=== PATIENT | female | born 2000 | race American Indian/Alaskan Native ===

== ENCOUNTER 2022-02-13 15:35 | Emergency (ER) | payer MEDICAID ==
[2022-02-13 17:47] LABS: Eosinophils # (Auto) 0.1 K/mm3 (0.0-0.4); Eosinophils % (Auto) 2.8 % (0.0-4.3); Hematocrit 39.9 % (30.3-42.9); Hemoglobin 13.4 gm/dl (10.1-14.3); Lymphocytes # (Auto) 1.6 K/mm3 (1.2-5.4); Lymphocytes % (Auto) 33.5 % (13.4-35.0); Mean Corpuscular HGB Conc 34 % (30-34); Mean Corpuscular Volume 88 fl (79-97); Monocytes # (Auto) 0.7 K/mm3 (0.0-0.8); Monocytes % (Auto) 15.1 % (0.0-7.3); Platelet Count 254 K/mm3 (140-440); Red Blood Count 4.53 M/mm3 (3.65-5.03); Red Cell Distribution Width 14.6 % (13.2-15.2)
[2022-02-13 17:53] LABS: Bilirubin,Urine NEG (Negative); Blood,Urine MOD (Negative); Color,Urine Straw (Yellow); Protein,Urine <15 mg/dL mg/dL (Negative); RBC,Urine < 1.0 /HPF (0.0-6.0); Urobilinogen,Urine < 2.0 mg/dL (<2.0)
[2022-02-13 17:55] LABS: WBC,Urine < 1.0 /HPF (0.0-6.0)
[2022-02-13] MEDS ORDERED: IBUPROFEN 600 MG TAB PO ONE (20:57)
[2022-02-13] MEDS ORDERED: ACETAMINOPHEN 500 MG TAB PO ONE (20:57)
[2022-02-13 22:41] LABS: Alanine Aminotransferase 10 units/L (7-56); Albumin 4.3 g/dL (3.9-5); BUN/Creatinine Ratio 11; Blood Urea Nitrogen 9 mg/dL (7-17); Calcium 9.4 mg/dL (8.4-10.2); Hemolysis Index 14
--- NOTE | 2022-02-13 23:34 | Cat Scan Report ---
CT ABDOMEN AND PELVIS WITH CONTRAST INDICATION: RLQ abdominal pain. TECHNIQUE: Axial CT images were obtained through the abdomen and pelvis after IV contrast. All CT scans at this location are performed using CT dose reduction for ALARA by means of automated exposure control. COMPARISON: None available. FINDINGS: LOWER CHEST: No significant abnormality. LIVER: No significant abnormality. GALLBLADDER: No significant abnormality. BILE DUCTS: No significant abnormality. PANCREAS: No significant abnormality. SPLEEN: No significant abnormality. ADRENALS: No significant abnormality. RIGHT KIDNEY and URETER: No significant abnormality. LEFT KIDNEY and URETER: No significant abnormality. STOMACH and SMALL BOWEL: No significant abnormality. COLON: No significant abnormality. APPENDIX: Normal. PERITONEUM: No free fluid. No free air. No fluid collection. LYMPH NODES: No significant adenopathy. AORTA and ARTERIES: No significant abnormality. IVC and VEINS: No significant abnormality. URINARY BLADDER: No significant abnormality. REPRODUCTIVE ORGANS: No significant abnormality. ADDITIONAL FINDINGS: None. SKELETAL SYSTEM: No significant abnormality. IMPRESSION: 1. No significant abnormality. Signer Name: Delvin Hill MD Signed: 02/13/2022 11:30 PM Workstation Name: [id number]
--- NOTE | 2022-02-13 23:40 | Ultrasound Report ---
ULTRASOUND PELVIS INDICATION: vaginal bleeding, pain. TECHNIQUE: Transabdominal. Duplex Color Doppler used: Yes. COMPARISON: None available FINDINGS: Uterus: Present. Size: 7.2 x 3.7 x 5.5 cm. Endometrial complex: Normal measuring 9 mm. Mass lesions: None. Additional findings: None. Right Ovary -- not visualized Left Ovary-- not visualized Urinary Bladder: Normal. Free Fluid: None. Additional Findings: None. IMPRESSION: 1. No acute sonographic abnormality of the pelvis. 2. Neither ovary visualized on this transabdominal ultrasound Signer Name: Delvin Hill MD Signed: 02/13/2022 11:36 PM Workstation Name: [id number]
--- NOTE | 2022-02-14 00:26 | Emergency Department Report ---
ED Female HPI - General Chief complaint: Vaginal Bleeding Stated complaint: POSSIBLE MISCARRIAGE/FEMALE HEALTH ISSUES Source: patient Mode of arrival: Ambulatory Limitations: No Limitations - History of Present Illness Initial comments: Patient is a A2 21-year-old -[place] female with no past medical history presents to the ED with complaint of acute onset persistent diffuse low abdominal pain with vaginal bleeding for the last 1 week, worse in the last 3 days. Patient states that her vaginal bleeding has been persistent for 1 month but the suprapubic and right lower quadrant pain started 3 days ago with increasing behavior vaginal bleeding. Patient states that she has never had irregular menstrual cycle and that her cycles are usually mild but these current symptoms have worsened. Patient denies dizziness, syncope, fever, chills, cough, sore throat, vaginal discharge, dysuria, urinary frequency and urgency, dyspareunia, low back pain, headache or lightheadedness and dizziness. MD Complaint: vaginal bleeding, pelvic pain -: Sudden, month(s) (1) Location: suprapubic Radiation: non-radiating Severity: severe Severity scale (0 -10): 7 Quality: cramping, sharp Consistency: constant Improves with: none Worsens with: menstrual period Are you Now?: No Associated Symptoms: denies other symptoms, vaginal bleeding, abdominal pain (SUPRAPOUBIC). denies: nausea/vomiting, fever/chills, headaches, dysuria, hematuria, rash, shortness of breath, weakness - Related Data Sexually active: Yes : 2 Para: 0 A: 2 Previous Rx's Medication Instructions Recorded Last Taken Type Ibuprofen [Motrin] 800 mg PO Q8HR PRN #30 tablet 02/14/22 Unknown Rx Ondansetron [Zofran Odt] 4 mg PO Q8HR PRN #15 tab.rapdis 02/14/22 Unknown Rx traMADoL [Ultram] 50 mg PO Q6HR PRN #10 tablet 02/14/22 Unknown Rx Allergies Allergy/AdvReac Type Severity Reaction Status Date / Time No Known Allergies Allergy Unverified 02/13/22 16:37 ED Review of Systems ROS: Stated complaint: POSSIBLE MISCARRIAGE/FEMALE HEALTH ISSUES Other details as noted in HPI Constitutional: denies: chills, fever Eyes: denies: eye pain, eye discharge, vision change ENT: denies: ear pain, throat pain Respiratory: denies: cough, shortness of breath, wheezing Cardiovascular: denies: chest pain, palpitations Endocrine: no symptoms reported Gastrointestinal: denies: abdominal pain, nausea, diarrhea Genitourinary: abnormal menses (Heavy vaginal bleeding), other (Pelvic pain). denies: urgency, dysuria, discharge Musculoskeletal: denies: back pain, joint swelling, arthralgia Skin: denies: rash, lesions Neurological: denies: headache, weakness, paresthesias Psychiatric: denies: anxiety, depression Hematological/Lymphatic: denies: easy bleeding, easy bruising ED Past Medical Hx - Past Medical History Previous Medical History?: No - Surgical History Past Surgical History?: Yes Additional Surgical History: tonsillectomy - Medications Home Medications: Home Medications Medication Instructions Recorded Confirmed Last Taken Type Ibuprofen [Motrin] 800 mg PO Q8HR PRN #30 tablet 02/14/22 Unknown Rx Ondansetron [Zofran Odt] 4 mg PO Q8HR PRN #15 tab.rapdis 02/14/22 Unknown Rx traMADoL [Ultram] 50 mg PO Q6HR PRN #10 tablet 02/14/22 Unknown Rx ED Physical Exam - General Limitations: No Limitations General appearance: alert, in no apparent distress - Head Head exam: Present: atraumatic, normocephalic, normal inspection - Eye Eye exam: Present: normal appearance, PERRL, EOMI Pupils: Present: normal accommodation - ENT ENT exam: Present: normal exam, normal orophraynx, mucous membranes moist, TM's normal bilaterally, normal external ear exam - Neck Neck exam: Present: normal inspection, full ROM - Respiratory Respiratory exam: Present: normal lung sounds bilaterally. Absent: respiratory distress, wheezes, rales, rhonchi, chest wall tenderness, accessory muscle use, decreased breath sounds - Cardiovascular Cardiovascular Exam: Present: regular rate, normal rhythm, normal heart sounds. Absent: systolic murmur, diastolic murmur, rubs, gallop - GI/Abdominal GI/Abdominal exam: Present: soft, tenderness (Palpable suprapubic and right lower quadrant tenderness), normal bowel sounds. Absent: guarding, rebound, hyperactive bowel sounds, hypoactive bowel sounds, organomegaly - Extremities Exam Extremities exam: Present: normal inspection, full ROM, normal capillary refill. Absent: tenderness - Back Exam Back exam: Present: normal inspection, full ROM. Absent: tenderness, CVA tenderness (R), CVA tenderness (L), muscle spasm, paraspinal tenderness, vertebr al tenderness - Neurological Exam Neurological exam: Present: alert, oriented X3, CN II-XII intact, normal gait, reflexes normal - Psychiatric Psychiatric exam: Present: normal affect, normal mood - Skin Skin exam: Present: warm, dry, intact, normal color. Absent: rash ED Course Vital Signs 02/13/22 16:42 Temperature 98.6 F Pulse Rate 57 L Respiratory 20 Rate Blood Pressure 143/80 [Right] O2 Sat by Pulse 100 Oximetry ED Medical Decision Making - Lab Data Result diagrams: 02/13/22 17:05 02/13/22 17:05 - Radiology Data Radiology results: report reviewed, image reviewed [facility] [address] [place] [address] Cat Scan Report Signed Patient: SHERRIE WALDRON MR#: [id number] 9 : 2000 Acct:[id number] Age/Sex: 21 / F ADM Date: 02/13/22 Loc: ED Attending Dr: Ordering Physician: KENN LUDWIG Date of Service: 02/13/22 Procedure(s): CT abdomen pelvis w con Accession Number(s): [id number] cc: KENN LUDWIG CT ABDOMEN AND PELVIS WITH CONTRAST INDICATION: RLQ abdominal pain. TECHNIQUE: Axial CT images were obtained through the abdomen and pelvis after IV contrast. All CT scans at this location are performed using CT dose reduction for ALARA by means of automated exposure control . COMPARISON: None available. FINDINGS: LOWER CHEST: No significant abnormality. LIVER: No significant abnormality. GALLBLADDER: No significant abnormality. BILE DUCTS: No significant abnormality. PANCREAS: No significant abnormality. SPLEEN: No significant abnormality. ADRENALS: No significant abnormality. RIGHT KIDNEY and URETER: No significant abnormality. LEFT KIDNEY and URETER: No significant abnormality. STOMACH and SMALL BOWEL: No significant abnormality. COLON: No significant abnormality. APPENDIX: Normal. PERITONEUM: No free fluid. No free air. No fluid collection. LYMPH NODES: No significant adenopathy. AORTA and ARTERIES: No significant abnormality. IVC and VEINS: No significant abnormality. URINARY BLADDER: No significant abnormality. REPRODUCTIVE ORGANS: No significant abnormality. ADDITIONAL FINDINGS: None. SKELETAL SYSTEM: No significant abnormality. IMPRESSION: 1. No significant abnormality. Signer Name: Delvin Hill MD Signed: 02/13/2022 11:30 PM Workstation Name: [id number] Transcribed By: TL Dictated By: Delvin Hill MD Electronically Authenticated By: Delvin Hill MD Signed Date/Time: 02/13/222329 DD/ 26 TD/TT: ---- [facility] [address] [place] [address] Ultrasound Report Signed Patient: SHERRIE WALDRON MR#: [id number] 9 : 2000 Acct:[id number] Age/Sex: 21 / F ADM Date: 02/13/22 Loc: ED Attending Dr: Ordering Physician: KENN LUDWIG Date of Service: 02/13/22 Procedure(s): US pelvic complete Accession Number(s): [id number] cc: KENN LUDWIG ULTRASOUND PELVIS INDICATION: vaginal bleeding, pain. TECHNIQUE: Transabdominal. Duplex Color Doppler used: Yes. COMPARISON: None available FINDINGS: Uterus: Present. Size: 7.2 x 3.7 x 5.5 cm. Endometrial complex: Normal measuring 9 mm. Mass lesions: None. Additional findings: None. Right Ovary -- not visualized Left Ovary-- not visualized Urinary Bladder: Normal. Free Fluid: None. Additional Findings: None. IMPRESSION: 1. No acute sonographic abnormality of the pelvis. 2. Neither ovary visualized on this transabdominal ultrasound Signer Name: Delvin Hill MD Signed: 02/13/2022 11:36 PM Workstation Name: [id number] Transcribed By: TL Dictated By: Delvin Hill MD Electronically Authenticated By: Delvin Hill MD Signed Date/Time: 02/13/222335 DD/ 31 TD/TT: - Medical Decision Making This is a A2 21-year-old -[place] female with no past medical history presents to the ED with complaint of acute onset persistent diffuse low abdominal pain with vaginal bleeding for the last 1 week, worse in the last 3 days. Patient states that her vaginal bleeding has been persistent for 1 month but the suprapubic and right lower quadrant pain started 3 days ago with increasing behavior vaginal bleeding. Patient states that she has never had irregular menstrual cycle and that her cycles are usually mild but these current symptoms have worsened. In the ED, patient is alert and oriented x3 and is not in any distress. Patient was treated in the ED for pain. All lab test results were reviewed and are all nonactionable including test which was negative. Pelvic ultrasound showed no acute abnormalities. The abdomen pelvis CT scan with IV contrast showed no acute abnormalities as well. On reevaluation, patient's pain is well controlled medication. Patient will discharge home on medications and advised to follow-up with [facility] physician in 5 to 7 days for reevaluation or return to the ED immediately if symptoms get worse. - Differential Diagnosis ; UTI; dysmenorrhea; menstrual cycle; metrorrhagia; ovarian cyst Critical care attestation.: If time is entered above; I have spent that time in minutes in the direct care of this critically ill patient, excluding procedure time. ED Disposition Clinical Impression: Severe dysmenorrhea, Metrorrhagia, Lower abdominal pain, Dysfunctional uterine hemorrhage Disposition: HOME / SELF CARE / HOMELESS Is pt being admited?: No Does the pt Need Aspirin: No Condition: Stable Instructions: Abdominal Pain, Adult, [id number], Metrorrhagia, [id number], Abnormal Uterine Bleeding, [id number], Dysmenorrhea, [id number] Additional Instructions: All lab test results were reviewed and are all nonactionable. Abdomen pelvis CT scan with IV contrast showed no acute abnormalities in the abdomen and pelvis. Pelvic ultrasound also showed no acute abnormalities. Therefore your symptoms are likely due to dysmenorrhea or painful menstrual cycle and the bleeding is due to your current menstrual cycle. Therefore take medications with food, drink plenty of fluids, follow-up with your [facility] physician or primary care physician in 7 to 10 days for reevaluation. Return to the ED immediately if symptoms get worse. Prescriptions: Ibuprofen [Motrin] 800 mg PO Q8HR PRN #30 tablet PRN Reason: Pain , Severe (7-10) traMADoL [Ultram] 50 mg PO Q6HR PRN #10 tablet PRN Reason: Pain Ondansetron [Zofran Odt] 4 mg PO Q8HR PRN #15 tab.rapdis PRN Reason: Nausea Referrals: WOJCIECH TYLER MD [Primary Care Provider] - 3-5 Days Time of Disposition: 00:30 Print Language: YORUBA
[2022-02-14 05:22] VITALS: BP 144/84
== END 2022-02-14 01:07 | disposition home or self-care (01) ==
LOC: ED 15:35
DX: N94.6 Dysmenorrhea, unspecified (principal); N92.1 Excessive and frequent menstruation with irregular cycle; R10.2 Pelvic and perineal pain; N93.8 Other specified abnormal uterine and vaginal bleeding; Z98.890 Other specified postprocedural states
CPT/HCPCS: 36415; 74177; 76856; 80053; 81001; 84703; 85025; 99284; Q9967